=== PATIENT | female | born 1950 | race Two or more races ===

== ENCOUNTER 2023-03-15 20:28 | Emergency (ER) | payer OTHER ==
[~2023-03-15] VITALS: Ht 162.6 cm; Wt 63.5 kg
[2023-03-15] MEDS ORDERED: ADULT LOW DOSE81 M1 PO (20:32)
== END 2023-03-15 23:17 | disposition home or self-care (01) ==
LOC: ER 20:28
DX: R55 Syncope and collapse (principal); Z88.0 Allergy status to penicillin